=== PATIENT | female | born 1980 | race Caucasian/White ===

== ENCOUNTER 2019-11-11 13:25 | Emergency (ER) | payer OTHER ==
--- NOTE | 2019-11-11 13:59 | UC ---
Abdominal Pain Female HPI - HPI Summary HPI Summary: 39-year-old female presents with complaints of ten-day history of pelvic pain. She states that the pain is at its worst first thing in the morning when she wakes and then improves throughout the day. Has been taking ibuprofen with relief. States she has also noted some urinary frequency. She was evaluated at [facility] 4-5 days ago and states she had a negative urinalysis, normal pelvic exam, and tested negative for gonorrhea and chlamydia. She is concerned that her IUD may have moved and states it was recommended to her that she come for an ultrasound. Reports approximately one week ago she had some spotting although states that this is typical for her since the IUD has been placed. Denies fever, chills, back or flank pain, nausea, vomiting, diarrhea, dysuria, urgency, hematuria, vaginal discharge, vaginal itching, or dyspareunia. - History of Current Complaint Chief Complaint: UCAbdominalPain Stated Complaint: PERSONAL Time Seen by Provider: 11/11/19 13:57 Hx Obtained From: Patient Hx Last Menstrual Period: 10/29/19 Pain Intensity: 7 Allergies/Adverse Reactions: Allergies Allergy/AdvReac Type Severity Reaction Status Date / Time No Known Allergies Allergy Verified 11/11/19 13:48 PMH/Surg Hx/FS Hx/Imm Hx Previously Healthy: Yes - Denies significant PMH - Surgical History Surgical History: Yes Surgery Procedure, Year, and Place: appy - Family History Known Family History: Positive: Non-Contributory - Social History Occupation: Student Lives: Dormitory/Roommates Alcohol Use: Occasionally Substance Use Type: None Smoking Status (MU): Light Every Day Tobacco Smoker Review of Systems All Other Systems Reviewed And Are Negative: Yes Constitutional: Negative: Fever, Chills Respiratory: Positive: Negative Cardiovascular: Positive: Negative Gastrointestinal: Positive: Abdominal Pain. Negative: Vomiting, Diarrhea, Nausea Genitourinary: Positive: Frequency. Negative: Dysuria, Hematuria, Urgency, Vaginal/Penile Itching, Vaginal/Penile Discharge, Abnormal Bleeding Musculoskeletal: Positive: Negative Neurological: Positive: Negative Is Patient Immunocompromised?: No Physical Exam - Summary Physical Exam Summary: GENERAL APPEARANCE: Well developed, well nourished, alert and cooperative, and appears to be in no acute distress. CARDIAC: Normal S1 and S2. No S3, S4 or murmurs. Rhythm is regular. There is no peripheral edema, cyanosis or pallor. Extremities are warm and well perfused. Capillary refill is less than 2 seconds. Peripheral pulses intact. LUNGS: Clear to auscultation without rales, rhonchi, wheezing or diminished breath sounds. ABDOMEN: Positive bowel sounds. Soft, nondistended, nontender. No guarding or rebound. No masses or hepatosplenomegally. No CVA tenderness. MUSKULOSKELETAL: ROM intact to all extremities. No joint erythema or tenderness. Normal muscular development. Normal gait. SKIN: Skin normal color, texture and turgor with no lesions or eruptions. Triage Information Reviewed: Yes Vital Signs: Initial Vital Signs Temp 98.8 F 11/11/19 13:45 Pulse 85 11/11/19 13:45 Resp 18 11/11/19 13:45 BP 101/67 11/11/19 13:45 Pulse Ox 100 11/11/19 13:45 Vital Signs Reviewed: Yes Diagnostics - Radiology No standard instances Radiology Interpretation Completed By: Radiologist Summary of Radiographic Findings: Order Information: US TRANSVAGINAL. INDICATION: Pelvic pain. Confirm IUD placement. COMPARISON: There are no relevant prior studies available for comparison. TECHNIQUE: Multiple real-time transvaginal images of the pelvis were obtained. FINDINGS: The uterus is normal in size, shape and echogenicity. The uterus measured 6.7 x 2.7 x 3.2 cm. The endometrial echo measured 0.2 cm in thickness. An IUD is in the endometrial canal. The right ovary measured 2.3 x 2.4 x 2.3 cm. It contains a 1.6 cm follicle. The left ovary measured 1.7 x 1.2 x 1.5 cm. Ovarian Doppler signal is detected bilaterally No free intraperitoneal fluid is seen. IMPRESSION: AN IUD IS SEEN WITHIN THE ENDOMETRIAL CANAL. Abd Pain Female Course/Dx - Course Course Of Treatment: 39-year-old female presents with complaints of ten-day history of pelvic pain. She states that the pain is at its worst first thing in the morning when she wakes and then improves throughout the day. Has been taking ibuprofen with relief. States she has also noted some urinary frequency. She was evaluated at [facility] 4-5 days ago and states she had a negative urinalysis, normal pelvic exam, and tested negative for gonorrhea and chlamydia. She is concerned that her IUD may have moved and states it was recommended to her that she come for an ultrasound. Reports approximately one week ago she had some spotting although states that this is typical for her since the IUD has been placed. Denies fever, chills, back or flank pain, nausea, vomiting, diarrhea, dysuria, urgency, hematuria, vaginal discharge, vaginal itching, or dyspareunia. Afebrile. Vital signs stable. Patient's exam was overall unremarkable. Patient had a negative urine . Transvaginal ultrasound was normal and showed IUD to be in proper placement. I reviewed these results with the patient. Nursing did mention to me that the patient's urine appeared to be very cloudy so discussed retesting for UTI with patient to which she was agreeable. [id number] urinalysis showed 3+ leukocyte esterase, 2+ blood, 2+ protein. Urine culture is pending. Reviewed these results with the patient and have recommended that we treat her empirically for a urinary tract infection to see if symptoms improve. She is to take Bactrim DS one tablet twice daily for 5 days. She is to follow-up with [facility] in 3-5 days if symptoms do not improve. Anticipatory guidance and warning symptoms are reviewed with the patient. Verbalizes understanding and the plan of care. - Differential Dx/Diagnosis Differential Diagnosis: Ectopic , Pelvic Inflammatory Disease, , Urinary Tract Infection, Other - IUD migration Provider Diagnosis: Pelvic pain, UTI (urinary tract infection) Discharge ED - Sign-Out/Discharge Documenting (check all that apply): Patient Departure All imaging exams completed and their final reports reviewed: Yes - Discharge Plan Condition: Stable Disposition: HOME Prescriptions: Sulfamethox/Trimethoprim DS* [Bactrim DS 800/160 TAB*] 1 tab PO BID #10 tab Patient Education Materials: Urinary Tract Infection in Women (ED), Pelvic Pain in Women (ED) Referrals: No Primary Care Phys,NOPCP [Primary Care Provider] - Lucina Tubbs MD [Medical Doctor] - 3 Days (Follow up in 3-5 days if symptoms do not improve. Call for appointment.) Additional Instructions: The ultrasound performed in the clinic today was normal and showed your IUD to be in proper placement. The urine test was negative. Your urine test in the clinic today is suggestive of a urinary tract infection. We will start you on an antibiotic to treat for the infection. We will also send a urine culture today to see what bacteria grow out and make sure the antibiotic you were prescribed is appropriate to treat the infection. It will take 48-72 hours to get these results. We will contact you if there is any change in your treatment plan. Start Bactrim DS 1 tablet twice a day for 5 days. Drink plenty of fluids. To help prevent urinary tract infections: 1) Be sure to wipe from front to back. 2) Urinate immediately after any sexual intercourse. 3) Avoid taking bubble baths. Follow up with your primary care provider in 5-7 days if symptoms persist. Seek immediate medical attention in the emergency room if you develop fever greater than 100.5 F, have severe abdominal pain, persistent vomiting, or any worsening of symptoms. - Billing Disposition and Condition Condition: STABLE Disposition: Home
--- NOTE | 2019-11-12 16:40 | UC ---
- Progress Note Progress Note: call patient and assure all symptoms resolved---patient dx with UTI but Urine Culture was negative---if she has continued symptoms besure she has follow up plan Course/Dx - Diagnoses Provider Diagnoses: Pelvic pain, UTI (urinary tract infection) Discharge ED - Sign-Out/Discharge Documenting (check all that apply): Post-Discharge Follow Up All imaging exams completed and their final reports reviewed: Yes - Discharge Plan Condition: Stable Disposition: HOME Prescriptions: Sulfamethox/Trimethoprim DS* [Bactrim DS 800/160 TAB*] 1 tab PO BID #10 tab Patient Education Materials: Urinary Tract Infection in Women (ED), Pelvic Pain in Women (ED) Referrals: Lucina Tubbs MD [Medical Doctor] - 3 Days (Follow up in 3-5 days if symptoms do not improve. Call for appointment.) No Primary Care Phys,NOPCP [Primary Care Provider] - Additional Instructions: The ultrasound performed in the clinic today was normal and showed your IUD to be in proper placement. The urine test was negative. Your urine test in the clinic today is suggestive of a urinary tract infection. We will start you on an antibiotic to treat for the infection. We will also send a urine culture today to see what bacteria grow out and make sure the antibiotic you were prescribed is appropriate to treat the infection. It will take 48-72 hours to get these results. We will contact you if there is any change in your treatment plan. Start Bactrim DS 1 tablet twice a day for 5 days. Drink plenty of fluids. To help prevent urinary tract infections: 1) Be sure to wipe from front to back. 2) Urinate immediately after any sexual intercourse. 3) Avoid taking bubble baths. Follow up with your primary care provider in 5-7 days if symptoms persist. Seek immediate medical attention in the emergency room if you develop fever greater than 100.5 F, have severe abdominal pain, persistent vomiting, or any worsening of symptoms. - Billing Disposition and Condition Condition: STABLE Disposition: Home
== END 2019-11-11 15:53 | disposition home or self-care (01) ==
LOC: UCEAST 13:25
DX: R10.2 Pelvic and perineal pain (principal); N39.0 Urinary tract infection, site not specified; F17.290 Nicotine dependence, other tobacco product, uncomplicated; Z97.5 Presence of (intrauterine) contraceptive device
CPT/HCPCS: 76830; 81003; 84702; 87086; 99202; G0463